=== PATIENT | female | born 1975 | race African-American/Black ===

== ENCOUNTER 2018-10-20 05:34 | Inpatient (IN) | payer MEDICAID ==
[~2018-10-20] VITALS: Ht 160 cm; Wt 89.4 kg
[~2018-10-20 05:34] MED LIST: FERR325T6 PO
[2018-10-20] MEDS ORDERED: SODIUM CHLORIDE 0.9% 1,000 ML IV SCH (05:45)
[2018-10-20 07:20] LABS: MEAN CORPUSCULAR HEMOGLOBIN 17.1 pg (28.0-32.0); MEAN CORPUSCULAR VOLUME 58.2 fL (81.0-99.0); PLATELET 261 x1000/uL (130-400); RED BLOOD CELL COUNT 3.98 mill/uL (4.2-5.4); RED CELL DISTRIBUTION WIDTH 20.3 % (11.6-14.6)
[2018-10-20 07:24] LABS: UCG SCREEN NEGATIVE
[2018-10-20 07:26] LABS: HEMATOCRIT 23.2 % (36.0-48.0); HEMOGLOBIN 6.8 g/dL (12.0-16.0)
[2018-10-20] MEDS ORDERED: HYDROMORPHONE HCL/PF 2MG/ML (OR) ONE (07:28)
[2018-10-20] MEDS ORDERED: MIDAZOLAM HCL 2 MG/2 ML VIAL ONE (07:29)
[2018-10-20] MEDS ORDERED: ROCURONIUM BROMIDE 10MG/ML VIAL 5ML IV ONE ×2 (07:29→09:23)
[2018-10-20] MEDS ORDERED: FENTANYL CITRATE/PF 50MCG/ML 5ML VIAL ONE (07:29)
[2018-10-20] MEDS ORDERED: PROPOFOL 200MG/20ML VIAL IV ONE (07:29)
[2018-10-20] MEDS ORDERED: CEFAZOLIN SODIUM 1000MG/VIAL ONE (07:33)
[2018-10-20] MEDS ORDERED: SODIUM CHLORIDE 0.9% 10ML VIAL ONE (07:33)
[2018-10-20] MEDS ORDERED: DEXAMETHASONE 4MG/ML 1ML VIAL ONE (07:33)
[2018-10-20] MEDS ORDERED: LIDOCAINE HCL 1% 20ML VIAL (Pyxis) INJ ONE (07:33)
[2018-10-20] MEDS ORDERED: ONDANSETRON HCL 4MG/2ML INJ IV PRN (10:15)
[2018-10-20] MEDS ORDERED: THROMBIN (BOVINE) 5000 UNITS/VIAL TOP ONE (10:31)
[2018-10-20] MEDS ORDERED: KETOROLAC 30MG/ML VIAL ONE (10:45)
[2018-10-20] MEDS ORDERED: ONDANSETRON HCL 4MG/2ML INJ ONE (10:46)
[2018-10-20] MEDS ORDERED: METOCLOPRAMIDE HCL 10MG/2ML VIAL ONE (10:46)
[2018-10-20] MEDS ORDERED: GLYCOPYRROLATE 0.2 MG/ML 2ML VIAL ONE (10:59)
[2018-10-20] MEDS ORDERED: FENTANYL CITRATE/PF 50MCG/ML 2ML VIAL ONE (11:13)
[2018-10-20] MEDS: HYDROMORPHONE HCL/PF 2MG/ML CPJ IV PRN ×4 (11:35→12:38)
[2018-10-20] MEDS ORDERED: HYDROMORPHONE HCL/PF 2MG/ML CPJ IV PRN (11:45)
[2018-10-20] MEDS: FENTANYL CITRATE/PF 50MCG/ML 2ML VIAL IV PRN ×4 (12:01→13:31)
[2018-10-20] MEDS: MEPERIDINE HCL/PF 25MG/ML CPJ IV PRN ×2 (13:11→13:34)
[2018-10-20 14:30] VITALS: BP 133/78
[2018-10-20 16:00] VITALS: BP 125/68
[2018-10-20] MEDS ORDERED: CEFAZOLIN 1000MG PREMIX 50 ML IV SCH (16:00)
[2018-10-20] MEDS ORDERED: HYDROMORPHONE HCL/PF 2MG/ML CPJ IV NR (17:15)
[2018-10-20] MEDS: LACTATED RINGERS 1,000 ML IV SCH (17:23)
[2018-10-20] MEDS: CEFAZOLIN 1000MG PREMIX 50 ML IV SCH (17:24)
[2018-10-20 20:00] VITALS: BP 129/70
[2018-10-20] MEDS ORDERED: NALOXONE INJ IV PRN (20:00)
[2018-10-20] MEDS ORDERED: ONDANSETRON INJ IV PRN (20:00)
[2018-10-20] MEDS ORDERED: DIPHENHYDRAMINE INJ IV PRN (20:00)
[2018-10-20] MEDS: IBUPROFEN 800MG TABLET PO PRN (20:24)
[2018-10-21] VITALS: BP 120/60
[2018-10-21] MEDS: HYDROMORPHONE PCA 10MG/50ML IV PRN ×2 (00:01→12:09)
[2018-10-21] MEDS: CEFAZOLIN 1000MG PREMIX 50 ML IV SCH ×3 (02:33→16:18)
[2018-10-21] MEDS: LACTATED RINGERS 1,000 ML IV SCH ×3 (02:34→16:15)
[2018-10-21 04:00] VITALS: BP 121/72
[2018-10-21 10:27] LABS: BASOPHILS % 0.1 % (0.0-2.0); LYMPHOCYTES % 8.2 % (20.0-50.0); MEAN CORPUSCULAR HEMOGLOBIN 20.6 pg (28.0-32.0); MEAN CORPUSCULAR VOLUME 66.1 fL (81.0-99.0); MEAN PLATELET VOLUME 8.6 fl (7.4-10.4); MONOCYTES % 6.8 % (2.0-8.0); NEUTROPHILS % 84.9 % (40.0-76.0); PLATELET 243 x1000/uL (130-400); RED BLOOD CELL COUNT 4.84 mill/uL (4.2-5.4); RED CELL DISTRIBUTION WIDTH 29.3 % (11.6-14.6)
[2018-10-21 11:22] LABS: PLATELET ESTIMATE NORMAL
[2018-10-21 20:00] VITALS: BP 148/71
[2018-10-22] VITALS: BP 139/57
[2018-10-22] MEDS: HYDROMORPHONE PCA 10MG/50ML IV PRN (03:11)
[2018-10-22 04:00] VITALS: BP 157/69
[2018-10-22 08:00] VITALS: BP 155/74
[2018-10-22] MEDS: IBUPROFEN 800MG TABLET PO PRN (11:41)
[2018-10-22 20:00] VITALS: BP 133/73
[2018-10-23] VITALS: BP 140/73
[2018-10-23 04:00] VITALS: BP 136/63
[2018-10-23] MEDS: IBUPROFEN 800MG TABLET PO PRN (09:11)
[2018-10-23 09:21] VITALS: BP 134/76
== END 2018-10-23 10:30 | disposition home or self-care (01) | DRG 519 ==
LOC: OR 05:34 → 6EST 05:35
PROVIDERS: ADMIT Obstetrics & Gynecology; ATTEND Obstetrics & Gynecology
PROC: 0UT90ZZ Resection of Uterus, Open Approach (ICD-10-PCS; principal; 2018-10-20)
PROC: 0UT70ZZ Resection of Bilateral Fallopian Tubes, Open Approach (ICD-10-PCS; 2018-10-20)
PROC: 30233N1 Transfusion of Nonautologous Red Blood Cells into Peripheral Vein, Percutaneous Approach (ICD-10-PCS; 2018-10-20)
DX: D25.9 Leiomyoma of uterus, unspecified (principal); D50.0 Iron deficiency anemia secondary to blood loss (chronic); N92.1 Excessive and frequent menstruation with irregular cycle; E66.9 Obesity, unspecified; Z98.891 History of uterine scar from previous surgery; Z98.51 Tubal ligation status; Z68.34 Body mass index [BMI] 34.0-34.9, adult
CPT/HCPCS: 36415; 81025; 85027; 86850; 86900; 86920; 88302; 88305; 88307; 93005; C1893; J0690; J1100; J1170; J1885; J2175; J2250; J2405; J2704; J2765; J3010; J3490; J7120; P9016